=== PATIENT | female | born 1955 | race Caucasian/White ===

== ENCOUNTER 2020-01-17 19:41 | Emergency (ER) | payer MEDICARE ==
--- NOTE | 2020-01-17 20:03 | ER Document Report ---
ED Medical Screen (RME) - General Chief Complaint: Leg Pain Stated Complaint: LEG PAIN Time Seen by Provider: 01/17/20 19:50 - HPI Notes: 01/17/20 20:00 64-year-old female to the emergency department with complaints of left leg pain that has progressively been getting worse for the past several days. She states it started in her medial knee and then now it radiates up the back of the leg and down the back of the calf. She states that she has so much pain and that that she has been having to use a cane. She denies any falls or blunt trauma to the knee. She states sometimes the knee goes out on her but this is significan tly different than those prior episodes. She also states that the medial part of her left knee is starting to hurt but she has no radiation of pain down into the calf or thigh. She does have pertinent recent history for long drive in the car. She went to go visit her child in [place] and they drove each way. The car ride in 1 direction is 12 hours. She has never had a clot in her leg. She denies any fevers or chills. She does report 1 incident of chest pain recently. On Tuesday night she experienced nonradiating midsternal chest pain for about 3 to 4 minutes. She did not have any associated diaphoresis, nausea vomiting, arm pain, back pain. She states that she had a heart cath several years ago and was told that she had great patent arteries. On brief medical screening exam palak barcenas has tenderness to palpation to the medial aspect of the right knee and into the posterior aspect. She does not appear to be significantly edematous in the leg but some of her body habitus limits exam. DP pulses are intact and equal. There is no erythema or skin changes. I performed a brief medical screening exam on the patient determined that the patient needs further evaluation and management by main side provider. I have placed initial orders to help expedite care. - Related Data Home Medications: asa, 2 depression meds Past Medical History - Social History Frequency of alcohol use: None Drug Abuse: None Physical Exam - Vital signs Vitals: Temp Pulse Resp BP Pulse Ox 99.3 F 89 20 135/75 H 97 01/17/20 19:48 01/17/20 19:48 01/17/20 19:48 01/17/20 19:48 01/17/20 19:48 Course - Vital Signs Vital signs: Temp Pulse Resp BP Pulse Ox 99.3 F 89 20 135/75 H 97 01/17/20 19:48 01/17/20 19:48 01/17/20 19:48 01/17/20 19:48 01/17/20 19:48
--- NOTE | 2020-01-17 20:43 | RADIOLOGY REPORT (SQ) ---
EXAM DESCRIPTION: XR CHEST 2 VIEWS COMPLETED DATE/TME: 01/17/2020 20:16 CLINICAL HISTORY: 64 years, Female, chest pain COMPARISON: None. NUMBER OF VIEWS: 2 TECHNIQUE: Frontal and lateral radiograph were obtained LIMITATIONS: None. FINDINGS: Cardiac and mediastinal contours are normal. Lungs are clear. No pleural effusion or pneumothorax. The right hemidiaphragm is slightly elevated. Postsurgical changes are noted about the distal right clavicle. IMPRESSION: No acute disease. copyright 2010 [employer]- All Rights Reserved
--- NOTE | 2020-01-17 20:58 | RADIOLOGY REPORT (SQ) ---
EXAM DESCRIPTION: X-ray bilateral knees 4 views COMPLETED DATE/TME: 01/17/2020 20:16 CLINICAL HISTORY: 64 years, Female, bilateral knee pain COMPARISON: None. NUMBER OF VIEWS: TECHNIQUE: LIMITATIONS: None. FINDINGS: There are degenerative changes involving the knees bilaterally, right side more apparent than left. No fracture or dislocation. There is no significant sized knee joint effusion. IMPRESSION: Degenerative changes, right side worse than left. copyright 2010 [employer]- All Rights Reserved
--- NOTE | 2020-01-17 21:40 | RADIOLOGY REPORT (SQ) ---
US LOWER EXTREMITY VEINS HISTORY: Leg pain and swelling. COMPARISON: None. TECHNIQUE: Hui-scale, color Doppler and spectral Doppler images of the bilateral lower extremity veins were obtained. FINDINGS: The bilateral common femoral, superficial femoral and popliteal veins are patent and compressible. Normal augmentation and color Doppler blood flow in the aforementioned veins. The visualized calf veins are also patent. Diffuse subcutaneous edema is present. IMPRESSION: No DVT in the bilateral lower extremities.
[2020-01-17 21:44] LABS: ABSOLUTE BASOPHILS # (AUTO) 0.1 10^3/uL (0.0-0.2); ABSOLUTE EOSINOPHILS # (AUTO) 0.2 10^3/uL (0.0-0.6); ABSOLUTE LYMPHOCYTES (AUTO) 2.3 10^3/uL (0.5-4.7); ABSOLUTE MONOCYTES (AUTO) 0.8 10^3/uL (0.1-1.4); ABSOLUTE NEUT (AUTO) 7.1 10^3/uL (1.7-8.2); BASOPHILS % (AUTO) 0.5 % (0-2); EOSINOPHILS % (AUTO) 1.7 % (0-6); HEMATOCRIT 40.5 % (36.0-47.0); HEMOGLOBIN 13.5 g/dL (12.0-15.5); LYMPHOCYTES % (AUTO) 22.4 % (13-45); MEAN CORPUSCULAR HEMOGLOBIN 28.5 pg (27.0-33.4); MEAN CORPUSCULAR HGB CONC 33.3 g/dL (32.0-36.0); MEAN CORPUSCULAR VOLUME 86 fl (80-97); MONOCYTES % (AUTO) 7.8 % (3-13); PLATELET COUNT 391 10^3/uL (150-450); RED BLOOD COUNT 4.73 10^6/uL (3.72-5.28); RED CELL DISTRIBUTION WIDTH 14.5 % (11.5-14.0); SEGMENTED NEUTROPHILS % (AUTO) 67.6 % (42-78); TOTAL CELLS COUNTED % (AUTO) 100 %; WHITE BLOOD COUNT 10.5 10^3/uL (4.0-10.5)
[2020-01-17 22:01] LABS: ALBUMIN 4.5 g/dL (3.5-5.0); ALKALINE PHOSPHATASE 120 U/L (38-126); ANION GAP 6 (5-19); ASPARTATE AMINO TRANSFERASE 72 U/L (14-36); BILIRUBIN,DIRECT 0.2 mg/dL (0.0-0.4); BILIRUBIN,TOTAL 0.5 mg/dL (0.2-1.3); BLOOD UREA NITROGEN 26 mg/dL (7-20); CALCIUM 10.6 mg/dL (8.4-10.2); CARBON DIOXIDE 29 mmol/L (22-30); CHLORIDE 102 mmol/L (98-107); GLUCOSE 105 mg/dL (75-110); POTASSIUM 5.6 mmol/L (3.6-5.0); TOTAL PROTEIN 7.7 g/dL (6.3-8.2)
[2020-01-18] MEDS ORDERED: FENTANYL CITRATE INJ/PF 100 MCG/2 ML AMPUL IV ONE (00:01)
[2020-01-18] MEDS ORDERED: NORMAL SALINE 1000 ML 1,000 ML IV ONE (00:01)
--- NOTE | 2020-01-18 00:08 | ER Document Report ---
ED Extremity Problem, Lower - General Chief Complaint: Leg Pain Stated Complaint: LEG PAIN Time Seen by Provider: 01/17/20 23:30 Primary Care Provider: [facility] ([facility] [Provider Group] - Follow up as needed Mode of Arrival: Ambulatory Information source: Patient Notes: Pt presents to the emergency department with complaints of left leg pain that has progressively been getting worse as a long-distance car trip on 01/07/2020. She states it started in her medial knee and then now it radiates up the back of the leg and down the back of the calf. She states that she has so much pain and that that she has been having to use a cane. She denies any falls or blunt trauma to the knee. She states sometimes the right knee goes out on her but this is significantly different than those prior episodes. Patient complains primarily of lateral thigh pain that sometimes radiates into the lower leg. Patient additionally complains of left knee joint pain. Patient denies any lower back pain. She does have pertinent recent history for long drive in the car. She traveled from [place] where she lives which is a 12-hour trip. She has never had a clot in her leg. She denies any fevers or chills. She does report 1 incident of chest pain recently. On Tuesday night she experienced nonradiating midsternal chest pain that she described as twinges for about 3 to 4 minutes. She did not have any associated diaphoresis, nausea vomiting, arm pain, back pain. She states that she had a heart cath several years ago and was told that she had great patent arteries. DP pulses are intact and equal. There is no erythema or skin changes. - HPI Patient complains to provider of: Pain. No: Swelling Location: Knee, Leg Occurred: Other - 12 days Onset/Duration: Persistent Quality of pain: Achy Pain Level: 3 Context: Recent travel Recent injury: No Associated symptoms: Painful ambulation. denies: Fever, Short of breath, Unable to bear weight Exacerbated by: Movement Relieved by: Nothing - Related Data Home Medications: asa, 2 depression meds Past Medical History - General Information source: Patient - Social History Smoking Status: Never Smoker Frequency of alcohol use: None Drug Abuse: None Lives with: Spouse/Significant other Family History: Reviewed & Not Pertinent - Past Medical History Cardiac Medical History: Reports: Hx Hypercholesterolemia Endocrine Medical History: Reports: Hx Hypothyroidism Musculoskeletal Medical History: Reports Other - Osteoporosis Psychiatric Medical History: Reports: Hx Depression Past Surgical History: Reports: Hx Cardiac Catheterization, Hx Gastric Bypass Surgery Review of Systems - Review of Systems Constitutional: No symptoms reported. denies: Fever EENT: No symptoms reported Cardiovascular: No symptoms reported. denies: Chest pain, Dizziness, Lightheaded Respiratory: No symptoms reported. denies: Short of breath Gastrointestinal: No symptoms reported. denies: Vomiting Genitourinary: No symptoms reported Female Genitourinary: No symptoms reported Musculoskeletal: Joint pain - Left knee, Muscle pain - Left lower extremity. denies: Back pain, Leg swelling Skin: No symptoms reported Hematologic/Lymphatic: No symptoms reported Neurological/Psychological: No symptoms reported. denies: Weakness Physical Exam - Vital signs Vitals: Temp Pulse Resp BP Pulse Ox 99.3 F 89 20 135/75 H 97 01/17/20 19:48 01/17/20 19:48 01/17/20 19:48 01/17/20 19:48 01/17/20 19:48 - General General appearance: Appears well, Alert In distress: None - HEENT Head: Normocephalic, Atraumatic Eyes: Normal Conjunctiva: Normal Neck: Normal, Supple - Respiratory Respiratory status: No respiratory distress Chest status: Nontender. No: Tender Breath sounds: Normal. No: Rales, Rhonchi, Stridor, Wheezing Chest palpation: Normal - Cardiovascular Rhythm: Regular. No: Tachycardia Heart sounds: S1 appreciated, S2 appreciated Pulses: Normal: Dorsalis pedis - Back Back: Tender - Left SI joint tenderness. No: CVA tenderness, Vertebra tenderness - Extremities General upper extremity: Normal inspection, Normal ROM General lower extremity: Normal inspection, Normal ROM Knee: Tender - Generalized left knee joint tenderness, Pain with ROM, Patellar tendon intact. No: Ecchymosis, Instability, Joint effusion, Laxity with valgus stress, Laxity with varus stress Calf: Normal, Nontender - Neurological Neuro grossly intact: Yes Cognition: Normal Madhu Coma Scale Eye Opening: Spontaneous Madhu Coma Scale Verbal: Oriented Madhu Coma Scale Motor: Obeys Commands Madhu Coma Scale Total: 15 - Psychological Associated symptoms: Normal mood - Skin Skin Temperature: Warm Skin Moisture: Dry Skin Color: Normal Course - Re-evaluation Re-evalutation: 01/18/20 00:[address] Morales regarding patient's presentation and diagnostic evaluation, specifically her chemistry panel, as patient does have some hyperkalemia. Patient has mild elevation of BUN. No EKG changes reflective of patient's hyperkalemia. Will give patient a dose of IV fluids and then recheck her chemistry panel after fluids have infused. Patient is agreeable with this plan of care at this time. 01/18/20 01:09 Patient denies any pain relief after initial dose of pain medication, additional medicine ordered at this time. IV fluid boluses infused, will recheck chemistry panel at this time. 01/18/20 02:15 Patient's potassium normalized after IV fluid administration. Patient sitting up in the chair, visibly more comfortable after pain medication administration. Patient with what appears to be a radicular left lower extremity pain with left knee arthritis. No concern for septic arthritis, gout,or fracture. Patient denies any chest pain symptoms, no concern for PE or DVT, patient not tachycardic nor hypoxic. No DVT noted on Doppler study. Patient does have bilateral knee degenerative changes on x-ray. Patient encouraged to increase oral fluids and stay well-hydrated. Will give patient short course of pain medication as well as steroid medication to help with her symptoms. Discussed worsening signs or symptoms that patient should return immediately for. Patient verbalized understanding and is agreeable with discharge plan of care. - Vital Signs Vital signs: Temp Pulse Resp BP Pulse Ox 98.2 F 84 17 153/85 H 98 01/18/20 02:40 01/18/20 02:40 01/18/20 02:40 01/18/20 02:40 01/18/20 02:40 - Laboratory Result Diagrams: 01/17/20 21:05 01/18/20 01:21 Laboratory results interpreted by me: 01/17/20 01/17/20 01/18/20 21:05 21:05 01:21 RDW 14.5 H Potassium 5.6 H BUN 26 H 23 H Est GFR ( Amer) 57 L Est GFR (MDRD) Non-Af 47 L 56 L Calcium 10.6 H AST 72 H ALT 71 H 01/18/20 02:19 Labs- All tests 24 hr 01/17/20 01/17/20 01/17/20 21:05 21:05 21:05 WBC 10.5 RBC 4.73 Hgb 13.5 Hct 40.5 MCV 86 MCH 28.5 MCHC 33.3 RDW 14.5 H Plt Count 391 Lymph % (Auto) 22.4 Norman % (Auto) 7.8 Eos % (Auto) 1.7 Baso % (Auto) 0.5 Absolute Neuts (auto) 7.1 Absolute Lymphs (auto) 2.3 Absolute Monos (auto) 0.8 Absolute Eos (auto) 0.2 Absolute Basos (auto) 0.1 Seg Neutrophils % 67.6 Sodium 137.1 Potassium 5.6 H Chloride 102 Carbon Dioxide 29 Anion Gap 6 BUN 26 H Creatinine 1.15 Est GFR ( Amer) 57 L Est GFR (MDRD) Non-Af 47 L Glucose 105 Calcium 10.6 H Magnesium 2.1 Total Bilirubin 0.5 Direct Bilirubin 0.2 Neonat Total Bilirubin Not Reportable Neonat Direct Bilirubin Not Reportable Neonat Indirect Bili Not Reportable AST 72 H ALT 71 H Alkaline Phosphatase 120 Troponin I < 0.012 Total Protein 7.7 Albumin 4.5 01/18/20 01:21 WBC RBC Hgb Hct MCV MCH MCHC RDW Plt Count Lymph % (Auto) Norman % (Auto) Eos % (Auto) Baso % (Auto) Absolute Neuts (auto) Absolute Lymphs (auto) Absolute Monos (auto) Absolute Eos (auto) Absolute Basos (auto) Seg Neutrophils % Sodium 138.3 Potassium 5.0 Chloride 106 Carbon Dioxide 25 Anion Gap 7 BUN 23 H Creatinine 0.99 Est GFR ( Amer) > 60 Est GFR (MDRD) Non-Af 56 L Glucose 105 Calcium 9.6 Magnesium Total Bilirubin Direct Bilirubin Neonat Total Bilirubin Neonat Direct Bilirubin Neonat Indirect Bili AST ALT Alkaline Phosphatase Troponin I Total Protein Albumin - Diagnostic Test Radiology reviewed: Image reviewed, Reports reviewed - EKG Interpretation by Me EKG shows normal: Sinus rhythm Rate: Normal [place]/QRS: LAHB/LAFB When compared to previous EKG there are: Previous EKG unavailable Additional EKG results interpreted by me: 01/18/20 02:21 Sinus rhythm with rate of 83, QTC 409, no acute ischemic changes Procedures - Immobilization Left Knee Pre-Proc Neuro Vasc Exam: Normal Immobilizer type: Pratik wrap Performed by: PCT Post-Proc Neuro Vasc Exam: Normal Alignment checked and good: Yes Discharge - Discharge Clinical Impression: Arthritis Left knee pain Qualifiers: Chronicity: chronic Qualified Code(s): M25.562 - Pain in left knee Sciatica Qualifiers: Laterality: left Qualified Code(s): M54.32 - Sciatica, left side Condition: Stable Disposition: HOME, SELF-CARE Instructions: Pratik Wrap ([facility]), Arthritis ([facility]), Oral Narcotic Medication ([facility]), Sciatica ([facility]) Additional Instructions: Return immediately for any new or worsening symptoms Followup with your primary care provider, call tomorrow to make a followup appointment Follow-up with orthopedics for any persistent pain or problems Prescriptions: Prednisone [Deltasone 10 mg Tablet] 10 mg PO ASDIR #21 tablet Folding Walker 1 unit XX ASDIR PRN #1 PRN Reason: Hydrocodone/Acetaminophen [[place] 5-325 mg Tablet] 1 tab PO Q6 PRN #12 tablet PRN Reason: Referrals: [facility] ([facility]) [Provider Group] - Follow up as needed
[2020-01-18] MEDS ORDERED: MORPHINE SULFATE 10 MG/ML INJ IV ONE (01:09)
[2020-01-18 01:46] LABS: ANION GAP 7 (5-19); BLOOD UREA NITROGEN 23 mg/dL (7-20); CALCIUM 9.6 mg/dL (8.4-10.2); CARBON DIOXIDE 25 mmol/L (22-30); CHLORIDE 106 mmol/L (98-107); GLUCOSE 105 mg/dL (75-110)
[2020-01-18 02:42] VITALS: BP 153/85
--- NOTE | 2020-01-18 08:55 | EKG REPORT ---
SEVERITY:- ABNORMAL ECG - SINUS RHYTHM LEFT ANTERIOR FASCICULAR BLOCK : Confirmed by: Carl Perez MD 18-Jan-2020 08:55:24
== END 2020-01-18 02:40 | disposition home or self-care (01) ==
LOC: ER 19:41
DX: M19.90 Unspecified osteoarthritis, unspecified site (principal); M54.32 Sciatica, left side; M79.18 Myalgia, other site; M25.562 Pain in left knee; G89.29 Other chronic pain; R07.9 Chest pain, unspecified; M25.561 Pain in right knee; E87.5 Hyperkalemia; I44.4 Left anterior fascicular block; F32.9 Major depressive disorder, single episode, unspecified; Z79.82 Long term (current) use of aspirin; Z79.899 Other long term (current) drug therapy
CPT/HCPCS: 93005; 99285; 96361; 96374; 96375; 36415; 83735; 85025; 80048; 80053; 84484; 93970; 71046; 73560; 93010; J3010; J2270; J7030